=== PATIENT | male | born 2000 | race Caucasian/White ===

== ENCOUNTER 2020-05-22 13:31 | Emergency (ER) | payer OTHER ==
[~2020-05-22] VITALS: Ht 180.3 cm; Wt 125.0 kg
[2020-05-22 13:38] VITALS: TEMP 97.5
[2020-05-22] MEDS ORDERED: ZOLOFT 25MG25 MG PO (13:56)
[2020-05-22 14:13] VITALS: BP 129/83; PULSE 92
== END 2020-05-22 14:09 | disposition home or self-care (01) ==
LOC: COL.ER 13:31
DX: I45.81 Long QT syndrome (principal); F32.9 Major depressive disorder, single episode, unspecified; Z79.52 Long term (current) use of systemic steroids